=== PATIENT | female | born 1985 | race Caucasian/White ===

== ENCOUNTER 2019-06-17 10:45 | Emergency (ER) | payer BC ==
[2019-06-17 11:39] LABS: ABS Eosinophils 0.1 10^3/ul (0-0.6); ABS Lymphocytes 2.1 10^3/ul (1.0-4.8); ABS Monocytes 0.5 10^3/ul (0-0.8); ABS Neutrophils 3.8 10^3/ul (1.5-7.7); Eosinophil % 1.1 %; Hematocrit 40 % (35-47); Hemoglobin 13.9 g/dL (12.0-16.0); Lymphocyte % 32.6 %; Mean Corpuscular HGB Conc 35 g/dL (31-36); Mean Corpuscular Hemoglobin 30 pg (27-31); Mean Corpuscular Volume 86 fL (80-97); Nucleated Red Blood Cells % 0.2; Platelet Count 256 10^3/uL (150-450); Red Blood Count 4.66 10^6 /uL (3.70-4.87); Red Cell Distribution Width 13 % (10-15); White Blood Count 6.6 10^3/uL (3.5-10.8)
--- NOTE | 2019-06-17 11:39 | ED ---
Abdominal Pain/Female - HPI Summary HPI Summary: Pt is a 34 y/o F presenting to the ED with a chief complaint of abdominal pain initially onset 2 days ago on 06/15/19. It was initially intermittent, lasting anywhere from a couple of seconds to a few hours, and is located in the RLQ, radiating to her R flank and back. She states it has now been constant since 0300 this date. She notes decreased appetite, nausea, vomiting, chills, and an episode of syncope when she experienced pain this morning. She denies fever, diarrhea, constipation, vaginal bleeding, vaginal discharge, dysuria, or hematuria. - History of Current Complaint Chief Complaint: EDAbdPain Stated Complaint: STOMACH PAIN PER PT Time Seen by Provider: 06/17/19 11:31 Hx Obtained From: Patient Onset/Duration: Gradual Onset, Lasting Days, Still Present Timing: Hours Severity Initially: Moderate Severity Currently: Severe Pain Intensity: 10 Pain Scale Used: 0-10 Numeric Location: Discrete At: RLQ Radiates: Yes Radiates to: Back, Flank Aggravating Factor(s): Nothing Alleviating Factor(s): Nothing Associated Signs and Symptoms: Positive: Decreased Appetite, Nausea, Vomiting. Negative: Fever, Constipation, Urinary Symptoms, Vaginal Bleeding, Vaginal Discharge, Diarrhea Allergies/Adverse Reactions: Allergies Allergy/AdvReac Type Severity Reaction Status Date / Time MS Acetaminophen Allergy Unknown Verified 06/17/19 10:51 [From Darvocet-N] Reaction Details MS Amoxicillin [Amoxicillin] Allergy Unknown Verified 06/17/19 10:51 Reaction Details MS Ibuprofen [Ibuprofen] Allergy Edema Verified 06/17/19 10:51 MS Iodinated Diagnostic Allergy Rash Verified 06/17/19 10:51 Agents [Iodinated Diagnostic Agents] MS Ketorolac Tromethamine Allergy Rash Verified 06/17/19 10:51 [From Toradol] MS Latex [Latex] Allergy Rash Verified 06/17/19 10:51 MS Lorazepam [From Ativan] Allergy Unknown Verified 06/17/19 10:51 Reaction Details MS Metoclopramide Allergy Unknown Verified 06/17/19 10:51 [From Reglan] Reaction Details MS Nalbuphine [From Nubain] Allergy Unknown Verified 06/17/19 10:51 Reaction Details MS Propoxyphene Allergy Unknown Verified 06/17/19 10:51 [From Darvocet-N] Reaction Details MS Sulfamethoxazole Allergy GI Upset Verified 06/17/19 10:51 w/Trimethoprim [From Bactrim] MS Tramadol [Tramadol] Allergy Rash Verified 06/17/19 10:51 Home Medications: Home Medications Amitriptyline TAB* [Elavil TAB*] 10 mg PO BEDTIME 06/17/19 [History Confirmed ] Diazepam TAB(*) [Valium TAB(*)] 5 mg PO BEDTIME PRN 06/17/19 [History Confirmed 06/17/19] Diazepam TAB(NF) [Valium TAB(NF)] 2 mg PO BID PRN 06/17/19 [History Confirmed ] Doxepin (NF) [Silenor (NF)] 10 mg PO DAILY 06/17/19 [History Confirmed 06/17/19] Melatonin (NF) 1 tab PO BEDTIME PRN 06/17/19 [History Confirmed 06/17/19] PMH/Surg Hx/FS Hx/Imm Hx Previously Healthy: Yes Cardiovascular History: Denies: Hx Hypertension, Hx Syncope Respiratory History: Reports: Hx Asthma, Hx Seasonal Allergies - pollen GI History: Reports: Hx Gall Bladder Disease - cholecystectomy, Other GI Disorders - fatty liver disease History: Reports: Hx Kidney Stones Denies: Hx Acute Renal Failure, Hx Benign Prostatic Hyperplasia, Hx Chronic Renal Failure, Hx Dialysis, Hx Kidney Infection Musculoskeletal History: Reports: Hx Arthritis - knees bilat, Hx Back Problems - "pinched nerves" per patient Sensory History: Reports: Hx Contacts or Glasses - not with patient at this time Denies: Hx Cataracts Opthamlomology History: Reports: Hx Contacts or Glasses - not with patient at this time Denies: Hx Cataracts Neurological History: Reports: Hx Headaches, Hx Migraine Denies: Hx Dementia, Hx Seizures Psychiatric History: Reports: Hx Anxiety, Hx Depression, Hx Bipolar Disorder, Hx Suicide Attempt - when she was 19 - "not serious" Denies: Hx Attention Deficit Hyperactivity Disorder, Hx Inpatient Treatment, Hx of Violent Episodes Against Others - Surgical History Surgery Procedure, Year, and Place: SETH, BILATERAL KNEES. ATTEMPTED TO STERILIZE BUT FAILED SURGERY ACCORDING TO PT/LOWER ABD SCAR Hx Anesthesia Reactions: No - Immunization History Date of Tetanus Vaccine: PT UNSURE Date of Influenza Vaccine: NONE Infectious Disease History: No Infectious Disease History: Denies: Hx Clostridium Difficile, Hx Hepatitis, Hx Human Immunodeficiency Virus (HIV), Hx of Known/Suspected MRSA, Hx Shingles, Hx Tuberculosis, Hx Known/ Suspected VRE, Hx Known/Suspected VRSA, History Other Infectious Disease, Traveled Outside the [place] in Last 30 Days - Family History Known Family History: Negative: Diabetes - Social History Alcohol Use: None Hx Substance Use: No Substance Use Type: Reports: None Hx Tobacco Use: No Smoking Status (MU): Never Smoked Tobacco Have You Smoked in the Last Year: No Review of Systems Positive: Chills, Other - decreased appetite. Negative: Fever Positive: Abdominal Pain, Vomiting, Nausea. Negative: Diarrhea, Other - constipation Negative: dysuria, discharge, hematuria, other - vaginal bleeding Positive: Syncope All Other Systems Reviewed And Are Negative: Yes Physical Exam - Summary Physical Exam Summary: Constitutional: Well-developed, Well-nourished, Alert. (-) Distressed Skin: Warm, Dry HENT: Normocephalic; Atraumatic Eyes: Conjunctiva normal Neck: Musculoskeletal ROM normal neck. (-) JVD, (-) Stridor, (-) Tracheal deviation Cardio: Rhythm regular, rate normal, Heart sounds normal; Intact distal pulses; Radial pulses are 2+ and symmetric. (-) Murmur Pulmonary/Chest wall: Effort normal. (-) Respiratory distress, (-) Wheezes, (-) Rales Abd: Soft, tenderness at McBurneys point, positive obturator sign, (-) Distension, (-) Guarding, (-) Rebound Musculoskeletal: (-) Edema Lymph: (-) Cervical adenopathy Neuro: Alert, Oriented x3 Psych: Mood and affect Normal Triage Information Reviewed: Yes Vital Signs On Initial Exam: Initial Vitals Temp Pulse Resp BP Pulse Ox 97.8 F 72 20 135/90 99 06/17/19 10:47 06/17/19 10:47 06/17/19 10:47 06/17/19 10:47 06/17/19 10:47 Vital Signs Reviewed: Yes Procedures - Sedation Patient Received Moderate/Deep Sedation with Procedure: No Diagnostics - Vital Signs Vital Signs Temp Pulse Resp BP Pulse Ox 06/17/19 10:47 97.8 F 72 20 135/90 99 - Laboratory Result Diagrams: 06/17/19 11:31 06/17/19 11:31 Lab Statement: Any lab studies that have been ordered have been reviewed, and results considered in the medical decision making process. - CT CT a/p CT Interpretation Completed By: Radiologist Summary of CT Findings: NORMAL APPENDIX. NO ACUTE CT PATHOLOGY OF THE VISUALIZED ABDOMEN OR PELVIS. ED physician has reviewed this report. Re-Evaluation - Re-Evaluation 1st re-eval Re-Evaluation Time: 13:00 Change: Unchanged Comment: Pt stated in imaging that her throat started to feel scratchy. She received 50mg IV Benadryl. There are no signs of airway obstruction. Blood pressure is nml. SaO2 is nml. 2nd re-eval Re-Evaluation Time: 13:39 Change: Improved Comment: Pt is asymptomatic for anaphylaxis. I will monitor the pt until 14:00 and then d/c if still asymptomatic. Abdominal Pain Fem Course/Dx - Course Course Of Treatment: Patient is here with right lower quadrant pain for the past couple of days. Patient had blood work performed which was grossly unremarkable. Patient is not . Patient had a CT scan showed normal appendix and no ovarian cysts. Patient did have a scratchy throat from the CT contrast dye. No evidence of anaphylaxis. Patient was watched with no worsening of her symptoms. - Diagnoses Provider Diagnoses: RLQ abdominal pain, Vomiting Discharge ED - Sign-Out/Discharge Documenting (check all that apply): Patient Departure - Discharge Plan Condition: Stable Disposition: HOME Prescriptions: Acetaminophen with Codeine [Acetaminophen-Cod #3 Tablet] 1 each PO Q8HR PRN #12 tablet MDD 3 tablets PRN Reason: pain severe Patient Education Materials: Acute Abdominal Pain (ED) Referrals: Brooks FERRIS,Jori Campoverde [Primary Care Provider] - Additional Instructions: Take your pain medications as prescribed. Follow up with your primary care provider within the next 1-3 days. - Billing Disposition and Condition Condition: STABLE Disposition: Home - Attestation Statements Document Initiated by Scribe: Yes Documenting Scribe: Merissa Singletary Provider For Whom Remigio is Documenting (Include Credential): Gilberto Howard MD. Scribe Attestation: Merissa Yuan scribed for Gilberto Howard MD. on 06/17/19 at 1910. Scribe Documentation Reviewed: Yes Provider Attestation: The documentation as recorded by the Merissa gastelum accurately reflects the service I personally performed and the decisions made by me, Gilberto Howard MD. Status of Scribe Document: Viewed
[2019-06-17] MEDS ORDERED: Ondansetron INJ* 2 MG/ML VIAL IV ONE (11:40)
[2019-06-17] MEDS ORDERED: Morphine 4 MG/ML VIAL (1 ml) 4 MG/ML VIAL IV ONE ×2 (11:40→12:25)
[2019-06-17] MEDS ORDERED: diPHENhydraMINE IV* 50 MG/ML 1 ml VIAL (BENADRYL) IV ONE (11:47)
[2019-06-17 11:56] LABS: Albumin/Globulin Ratio 1.1 (1-3); BUN/Creatinine Ratio 9.3 (8-20); Calcium 9.6 mg/dL (8.6-10.3); EGFR African American 80.5 (>60); EGFR Non-African American 66.6 (>60); Globulin 3.5 g/dL (2-4); Potassium 3.7 mmol/L (3.5-5.0); Total Bilirubin 0.8 mg/dL (0.2-1.0); Total Protein 7.5 g/dL (6.4-8.9)
[2019-06-17 12:02] LABS: HCG Pregnancy 6.22 mIU/mL
[2019-06-17 12:18] LABS: Urine Appearance Clear; Urine Bacteria Absent (Absent); Urine Bilirubin Negative (Negative); Urine Blood Negative (Negative); Urine Color Yellow; Urine Glucose Negative (Negative); Urine Ketones Negative (Negative); Urine Nitrite Negative (Negative); Urine Protein Negative (Negative); Urine Red Blood Cell 2+(6-10/hpf) (Absent); Urine Specific Gravity 1.017 (1.010-1.030); Urine Squamous Epithelial Cell Present (Absent); Urine Urobilinogen Negative (Negative); Urine White Blood Cell Trace(0-5/hpf) (Absent)
[2019-06-17] MEDS ORDERED: NS 0.9% 1000 ML** 1,000 ML IV ONE (12:25)
[2019-06-17] MEDS ORDERED: diPHENhydraMINE IV* 50 MG/ML 1 ml VIAL (BENADRYL) ONE (13:05)
[2019-06-17] MEDS ORDERED: Iohexol 300* (CONTRAST) 10 ML SDV IV ONE (13:13)
[2019-06-17] MEDS ORDERED: oxyCODONE TAB* 5 MG TAB PO ONE (13:31)
[2019-06-17 14:24] VITALS: BP 125/80
--- NOTE | 2019-06-19 07:08 | ED ---
Imaging and Labs Follow Up Follow Up Type: Labs/Cultures Labs/Culture Result: Urine culture with e coli [id number] moderate colony count squamous cells present Pt not complaining or UA symptoms while in ED aferbile no treatment needed at this time Patient Communication/Plan: no treatment required Provider Diagnoses: RLQ abdominal pain, Vomiting
== END 2019-06-17 14:20 | disposition home or self-care (01) ==
LOC: ED 10:45
DX: R10.31 Right lower quadrant pain (principal); R11.10 Vomiting, unspecified; Z87.442 Personal history of urinary calculi; J45.909 Unspecified asthma, uncomplicated; Z79.899 Other long term (current) drug therapy; R63.0 Anorexia
CPT/HCPCS: 36415; 74177; 80053; 81003; 81015; 83690; 84702; 85025; 87077; 87086; 87186; 99284; A9270-GY; J1200; J2270; J2405; Q9967

== ENCOUNTER 2019-06-26 16:49 | Emergency (ER) | payer BC ==
[2019-06-26] MEDS ORDERED: NS 0.9% 1000 ML** 1,000 ML IV ONE (18:08)
[2019-06-26] MEDS ORDERED: Ondansetron INJ* 2 MG/ML VIAL IV ONE (18:08)
[2019-06-26] MEDS ORDERED: Morphine 4 MG/ML VIAL (1 ml) 4 MG/ML VIAL IV ONE ×2 (18:08→20:33)
[2019-06-26] MEDS ORDERED: diPHENhydraMINE IV* 50 MG/ML 1 ml VIAL (BENADRYL) SLOW PUSH ONE (18:35)
[2019-06-26 18:51] LABS: ABS Lymphocytes 2.8 10^3/ul (1.0-4.8); ABS Monocytes 0.4 10^3/ul (0-0.8); ABS Neutrophils 3.1 10^3/ul (1.5-7.7); Eosinophil % 0.6 %; Hematocrit 41 % (35-47); Hemoglobin 14.2 g/dL (12.0-16.0); Lymphocyte % 44.2 %; Mean Corpuscular HGB Conc 34 g/dL (31-36); Mean Corpuscular Hemoglobin 30 pg (27-31); Mean Corpuscular Volume 87 fL (80-97); Mean Platelet Volume 8.1 fL (7.4-10.4); Nucleated Red Blood Cells % 0.1; Platelet Count 213 10^3/uL (150-450); Red Blood Count 4.72 10^6 /uL (3.70-4.87); Red Cell Distribution Width 13 % (10-15); White Blood Count 6.4 10^3/uL (3.5-10.8)
[2019-06-26] MEDS ORDERED: diPHENhydraMINE IV* 50 MG/ML 1 ml VIAL (BENADRYL) IV ONE (19:44)
[2019-06-26 20:08] LABS: Albumin 3.8 g/dL (3.2-5.2); Anion Gap 10 mmol/L (2-11); CO2 Carbon Dioxide 26 mmol/L (22-32); Calcium 9.3 mg/dL (8.6-10.3); Chloride 103 mmol/L (101-111); Sodium 139 mmol/L (135-145)
[2019-06-26 20:14] LABS: ALT 12 U/L (7-52); AST 14 U/L (13-39); Albumin/Globulin Ratio 1.4 (1-3); Alkaline Phosphatase 83 U/L (34-104); BUN/Creatinine Ratio 14.3 (8-20); Blood Urea Nitrogen 13 mg/dL (6-24); C Reactive Protein < 1.00 mg/L (<8.01); EGFR African American 86.7 (>60); EGFR Non-African American 71.6 (>60); Globulin 2.7 g/dL (2-4); Glucose 85 mg/dL (70-100); Total Protein 6.5 g/dL (6.4-8.9)
--- NOTE | 2019-06-26 20:18 | ED ---
GI/ HPI - HPI Summary HPI Summary: 34-year-old female presents with abdominal pain for the past 2 days. She states pain started periumblicial and moved to to the right lower quadrant. She admits to nausea vomiting. No fevers. No urinary symptoms. No abnormal vaginal discharge. She had this pain a week a ago and nothing was found. She does have a history of gastric sleeve that has had no complications with. Has had previous surgeries for endometriosis including a hysterectomy. States she is an extreme pain. Has not had appetite. Movement makes the pain worse. She denies any chest pain shortness breath. she has a history of asthma. - History of Current Complaint Chief Complaint: EDAbdPain Time Seen by Provider: 06/26/19 18:03 Stated Complaint: ABD PAIN PER PT Pain Intensity: 10 - Allergy/Home Medications Allergies/Adverse Reactions: Allergies Allergy/AdvReac Type Severity Reaction Status Date / Time MS Acetaminophen Allergy Unknown Verified 06/17/19 10:51 [From Darvocet-N] Reaction Details MS Amoxicillin [Amoxicillin] Allergy Unknown Verified 06/17/19 10:51 Reaction Details MS Ibuprofen [Ibuprofen] Allergy Edema Verified 06/17/19 10:51 MS Iodinated Diagnostic Allergy Rash Verified 06/17/19 10:51 Agents [Iodinated Diagnostic Agents] MS Ketorolac Tromethamine Allergy Rash Verified 06/17/19 10:51 [From Toradol] MS Latex [Latex] Allergy Rash Verified 06/17/19 10:51 MS Lorazepam [From Ativan] Allergy Unknown Verified 06/17/19 10:51 Reaction Details MS Metoclopramide Allergy Unknown Verified 06/17/19 10:51 [From Reglan] Reaction Details MS Nalbuphine [From Nubain] Allergy Unknown Verified 06/17/19 10:51 Reaction Details MS Propoxyphene Allergy Unknown Verified 06/17/19 10:51 [From Darvocet-N] Reaction Details MS Sulfamethoxazole Allergy GI Upset Verified 06/17/19 10:51 w/Trimethoprim [From Bactrim] MS Tramadol [Tramadol] Allergy Rash Verified 06/17/19 10:51 Home Medications: Home Medications Baclofen TAB* [Lioresal TAB*] 10 mg PO TID PRN 06/26/19 [History Confirmed 06/26] Doxepin (NF) [Silenor (NF)] 10 - 40 mg PO BEDTIME 06/26/19 [History Confirmed ] Lurasidone(*) [Latuda] 20 mg PO DAILY WITH MEAL 06/26/19 [History Confirmed ] Lurasidone(*) [Latuda] 80 mg PO DAILY WITH MEAL 06/26/19 [History Confirmed ] Pantoprazole TAB * [Protonix TAB*] 40 mg PO DAILY 06/26/19 [History Confirmed ] PMH/Surg Hx/FS Hx/Imm Hx Endocrine/Hematology History: Denies: Hx Anticoagulant Therapy Cardiovascular History: Denies: Hx Hypertension, Hx Syncope Respiratory History: Reports: Hx Asthma, Hx Seasonal Allergies - pollen GI History: Reports: Hx Gall Bladder Disease - cholecystectomy, Other GI Disorders - fatty liver disease History: Reports: Hx Kidney Stones Denies: Hx Acute Renal Failure, Hx Benign Prostatic Hyperplasia, Hx Chronic Renal Failure, Hx Dialysis, Hx Kidney Infection Musculoskeletal History: Reports: Hx Arthritis - knees bilat, Hx Back Problems - "pinched nerves" per patient Sensory History: Reports: Hx Contacts or Glasses - not with patient at this time Denies: Hx Cataracts Opthamlomology History: Reports: Hx Contacts or Glasses - not with patient at this time Denies: Hx Cataracts Neurological History: Reports: Hx Headaches, Hx Migraine Denies: Hx Dementia, Hx Seizures Psychiatric History: Reports: Hx Anxiety, Hx Depression, Hx Bipolar Disorder, Hx Suicide Attempt - when she was 19 - "not serious" Denies: Hx Attention Deficit Hyperactivity Disorder, Hx Inpatient Treatment, Hx of Violent Episodes Against Others - Surgical History Surgery Procedure, Year, and Place: SETH, BILATERAL KNEES. ATTEMPTED TO STERILIZE BUT FAILED SURGERY ACCORDING TO PT/LOWER ABD SCAR Hx Anesthesia Reactions: No - Immunization History Date of Tetanus Vaccine: PT UNSURE Date of Influenza Vaccine: 05/28/2019 Immunizations Up to Date: Yes Infectious Disease History: No Infectious Disease History: Denies: Hx Clostridium Difficile, Hx Hepatitis, Hx Human Immunodeficiency Virus (HIV), Hx of Known/Suspected MRSA, Hx Shingles, Hx Tuberculosis, Hx Known/ Suspected VRE, Hx Known/Suspected VRSA, History Other Infectious Disease, Traveled Outside the [place] in Last 30 Days - Family History Known Family History: Negative: Diabetes - Social History Alcohol Use: None Hx Substance Use: No Substance Use Type: Reports: None Hx Tobacco Use: No Smoking Status (MU): Never Smoked Tobacco Have You Smoked in the Last Year: No Review of Systems Negative: Fever Negative: Chest Pain Negative: Shortness Of Breath Positive: Abdominal Pain, Vomiting, Nausea. Negative: Diarrhea All Other Systems Reviewed And Are Negative: Yes Physical Exam Triage Information Reviewed: Yes Vital Signs On Initial Exam: Initial Vitals Temp Pulse Resp BP Pulse Ox 97.0 F 75 18 130/81 99 06/26/19 16:51 06/26/19 16:51 06/26/19 16:51 06/26/19 16:51 06/26/19 16:51 Vital Signs Reviewed: Yes Appearance: Positive: Well-Appearing Skin: Positive: Warm, Dry Head/Face: Positive: Normal Head/Face Inspection Eyes: Positive: Normal, Conjunctiva Clear ENT: Positive: Pharynx normal Respiratory/Lung Sounds: Positive: Clear to Auscultation, Breath Sounds Present Cardiovascular: Positive: Normal, RRR Abdomen Description: Positive: Soft, Other: - tenderness periumbilical and RLQ Bowel Sounds: Positive: Present Musculoskeletal: Positive: Normal Neurological: Positive: Normal Psychiatric: Positive: Normal Procedures - Sedation Patient Received Moderate/Deep Sedation with Procedure: No Diagnostics - Vital Signs Vital Signs Temp Pulse Resp BP Pulse Ox 06/26/19 19:37 17 06/26/19 19:26 63 110/74 99 06/26/19 19:25 60 98 06/26/19 16:51 97.0 F 75 18 130/81 99 - Laboratory Lab Results: Lab Results 06/26/19 06/26/19 06/26/19 Range/Units 18:45 18:45 18:45 WBC 6.4 (3.5-10.8) 10^3/uL RBC 4.72 (3.70-4.87) 10^6 /uL Hgb 14.2 (12.0-16.0) g/dL Hct 41 (35-47) % MCV 87 (80-97) fL MCH 30 (27-31) pg MCHC 34 (31-36) g/dL RDW 13 (10-15) % Plt Count 213 (150-450) 10^3/uL MPV 8.1 (7.4-10.4) fL Neut % (Auto) 49.3 % Lymph % (Auto) 44.2 % [place] % (Auto) 5.6 % Eos % (Auto) 0.6 % Baso % (Auto) 0.3 % Absolute Neuts (auto) 3.1 (1.5-7.7) 10^3/ul Absolute Lymphs (auto) 2.8 (1.0-4.8) 10^3/ul Absolute Monos (auto) 0.4 (0-0.8) 10^3/ul Absolute Eos (auto) 0.0 (0-0.6) 10^3/ul Absolute Basos (auto) 0.0 (0-0.2) 10^3/ul Absolute Nucleated RBC 0.0 10^3/ul Nucleated RBC % 0.1 Sodium 139 (135-145) mmol/L Potassium 4.0 (3.5-5.0) mmol/L Chloride 103 (101-111) mmol/L Carbon Dioxide 26 (22-32) mmol/L Anion Gap 10 (2-11) mmol/L BUN Pending Creatinine Pending Est GFR ( Amer) Pending Est GFR (Non-Af Amer) Pending BUN/Creatinine Ratio Pending Glucose Pending Lactic Acid 0.8 (0.5-2.0) mmol/L Calcium 9.3 (8.6-10.3) mg/dL Total Bilirubin 0.60 (0.2-1.0) mg/dL AST Pending ALT Pending Alkaline Phosphatase Pending C-Reactive Protein Pending Total Protein Pending Albumin 3.8 (3.2-5.2) g/dL Globulin Pending Albumin/Globulin Ratio Pending Lipase Pending Beta HCG, Quant Pending Result Diagrams: 06/26/19 18:45 06/26/19 18:45 Lab Statement: Any lab studies that have been ordered have been reviewed, and results considered in the medical decision making process. - CT abd CT Interpretation Completed By: Radiologist Summary of CT Findings: IMPRESSION: 1. No CT findings to correlate with patient' s symptomatology. Specifically no appendicitis. 2. Left nephrolithiasis. Re-Evaluation - Re-Evaluation First Eval Change: Improved Comment: still has pain Second Eval Re-Evaluation Time: 20:31 Change: Unchanged Comment: still in pain GIGU Course/Dx - Course Course Of Treatment: 34-year-old female presents with abdominal pain for the past 2 days. She states pain started periumblicial and moved to to the right lower quadrant. She admits to nausea vomiting. No fevers. No urinary symptoms. No abnormal vaginal discharge. She had this pain a week a ago and nothing was found. She does have a history of gastric sleeve that has had no complications with. Has had previous surgeries for endometriosis including a hysterectomy. States she is an extreme pain. Has not had appetite. Movement makes the pain worse. She denies any chest pain shortness breath. she has a history of asthma. On exam diffuse tenderness greatest in the right lower quadrant. wbc normal. CRP normal. CT shows no acute findings. Told to follow up with surgeon and gave referral to GI. Patient understands agrees with plan. - Diagnoses Differential Diagnoses - Female: Appendicitis, Colitis, Gastroenteritis (Viral) Provider Diagnoses: Abdominal pain Discharge ED - Sign-Out/Discharge Documenting (check all that apply): Patient Departure - Discharge Plan Condition: Good Disposition: HOME Patient Education Materials: Abdominal Pain (ED) Referrals: Jose Machado MD [Medical Doctor] - Brooks FERRIS,Jori Campoverde [Primary Care Provider] - Additional Instructions: follow up with surgeon follow up with GI follow up with primary Eat a bland diet Return to ED if develop any new or worsening symptoms - Billing Disposition and Condition Condition: GOOD Disposition: Home - Attestation Statements Provider Attestation: I was available for consult. This patient was seen by the CHERIE. The patient was not presented to, seen by, or examined by me. Gilberto Howard MD
[2019-06-26 20:19] LABS: HCG Pregnancy 4.66 mIU/mL
[2019-06-26] MEDS ORDERED: oxyCODONE TAB* 5 MG TAB PO ONE (20:42)
[2019-06-26 21:18] VITALS: BP 126/73
== END 2019-06-26 20:50 | disposition home or self-care (01) ==
LOC: ED 16:49
DX: R10.9 Unspecified abdominal pain (principal); N20.0 Calculus of kidney; F41.9 Anxiety disorder, unspecified; F31.9 Bipolar disorder, unspecified; Z90.49 Acquired absence of other specified parts of digestive tract; Z79.899 Other long term (current) drug therapy; Z88.5 Allergy status to narcotic agent; Z88.0 Allergy status to penicillin; Z88.2 Allergy status to sulfonamides; Z88.8 Allergy status to other drugs, medicaments and biological substances; Z88.6 Allergy status to analgesic agent; Z91.041 Radiographic dye allergy status; Z91.040 Latex allergy status
CPT/HCPCS: 36415; 74176; 80053; 83605; 83690; 84702; 85025; 86140; 96361; 96374; 96375; 99282; A9270-GY; J1200; J2270; J2405

== ENCOUNTER 2019-07-15 18:19 | Emergency (ER) | payer BC ==
[2019-07-15 18:38] VITALS: BP 117/100
== END 2019-07-15 20:19 | disposition left against medical advice (07) ==
LOC: ED 18:19
DX: Z53.21 Procedure and treatment not carried out due to patient leaving prior to being seen by health care provider (principal); R10.9 Unspecified abdominal pain
CPT/HCPCS: 99282

== ENCOUNTER 2019-07-31 16:54 | Emergency (ER) | payer BC ==
[2019-07-31 18:49] VITALS: BP 138/95
== END 2019-07-31 20:08 | disposition left against medical advice (07) ==
LOC: ED 16:54
DX: Z53.21 Procedure and treatment not carried out due to patient leaving prior to being seen by health care provider (principal); R10.9 Unspecified abdominal pain
CPT/HCPCS: 99281

== ENCOUNTER 2019-08-03 21:08 | Emergency (ER) | payer BC ==
[2019-08-03 21:51] LABS: Urine Appearance Clear; Urine Bilirubin Negative (Negative); Urine Blood Negative (Negative); Urine Color Yellow; Urine Glucose Negative (Negative); Urine Ketones Negative (Negative); Urine Nitrite Negative (Negative); Urine Protein Negative (Negative); Urine Specific Gravity 1.018 (1.010-1.030); Urine Urobilinogen Negative (Negative)
[2019-08-03 21:57] LABS: Urine Bacteria Absent (Absent); Urine Red Blood Cell Trace(0-2/hpf) (Absent); Urine Squamous Epithelial Cell Present (Absent); Urine White Blood Cell Trace(0-5/hpf) (Absent)
[2019-08-03] MEDS ORDERED: Morphine 4 MG/ML VIAL (1 ml) 4 MG/ML VIAL IV ONE (22:34)
[2019-08-03] MEDS ORDERED: Ondansetron INJ* 2 MG/ML VIAL IV ONE (22:34)
[2019-08-03 22:56] LABS: ALT 8 U/L (7-52); AST 14 U/L (13-39); Albumin 4.1 g/dL (3.2-5.2); Albumin/Globulin Ratio 1.2 (1-3); Alkaline Phosphatase 77 U/L (34-104); Anion Gap 8 mmol/L (2-11); BUN/Creatinine Ratio 14.6 (8-20); Blood Urea Nitrogen 13 mg/dL (6-24); C Reactive Protein < 1.00 mg/L (<8.01); CO2 Carbon Dioxide 24 mmol/L (22-32); Calcium 9.7 mg/dL (8.6-10.3); Chloride 106 mmol/L (101-111); EGFR African American 88.9 (>60); EGFR Non-African American 73.5 (>60); Globulin 3.5 g/dL (2-4); Glucose 91 mg/dL (70-100); Potassium 4.3 mmol/L (3.5-5.0); Sodium 138 mmol/L (135-145); Total Protein 7.6 g/dL (6.4-8.9)
[2019-08-03 22:58] LABS: Hematocrit 45 % (35-47); Hemoglobin 15.3 g/dL (12.0-16.0); Mean Corpuscular HGB Conc 35 g/dL (31-36); Mean Corpuscular Hemoglobin 31 pg (27-31); Mean Corpuscular Volume 89 fL (80-97); Red Blood Count 5.02 10^6 /uL (3.70-4.87); Red Cell Distribution Width 13 % (10-15); White Blood Count 6.9 10^3/uL (3.5-10.8)
[2019-08-03 23:02] LABS: HCG Pregnancy 6.49 mIU/mL
[2019-08-03] MEDS ORDERED: diPHENhydraMINE IV* 50 MG/ML 1 ml VIAL (BENADRYL) IV ONE (23:18)
[2019-08-03 23:22] VITALS: BP 122/87
--- NOTE | 2019-08-03 23:31 | ED ---
GI/ HPI - HPI Summary HPI Summary: 34-year-old female presents with abdominal pain today. States she's been having severe pain right lower quadrant. States that pain has been moving to her back. She has had a previous hysterectomy due to endometriosis. She also had a gastric sleeve 2 years ago and gallbladder removed. She followed up with surgery and was told has "a hole" in the area. She also has history of hiatal hernia. She denies any urinary symptoms. She denies any admits to nausea vomiting. No diarrhea or constipation. - History of Current Complaint Chief Complaint: EDAbdPain Time Seen by Provider: 08/03/19 22:19 Stated Complaint: ABD PAIN PER PT Pain Intensity: 10 - Allergy/Home Medications Allergies/Adverse Reactions: Allergies Allergy/AdvReac Type Severity Reaction Status Date / Time acetaminophen Allergy Unknown Verified 08/03/19 22:26 Reaction Details amoxicillin Allergy Rash Verified 08/03/19 22:26 ibuprofen Allergy Edema Verified 08/03/19 22:26 Iodinated Contrast Media Allergy Rash Verified 08/03/19 22:26 Latex, Natural Rubber Allergy Rash Verified 08/03/19 22:26 lorazepam Allergy Unknown Verified 08/03/19 22:26 Reaction Details metoclopramide [From Reglan] Allergy Unknown Verified 08/03/19 22:26 Reaction Details nalbuphine [From Nubain] Allergy Unknown Verified 08/03/19 22:26 Reaction Details propoxyphene Allergy Unknown Verified 08/03/19 22:26 Reaction Details sulfamethoxazole Allergy Unknown Verified 08/03/19 22:26 [From Bactrim] Reaction Details tramadol Allergy Rash Verified 08/03/19 22:26 trimethoprim [From Bactrim] Allergy Unknown Verified 08/03/19 22:26 Reaction Details PMH/Surg Hx/FS Hx/Imm Hx Endocrine/Hematology History: Denies: Hx Anticoagulant Therapy Cardiovascular History: Denies: Hx Hypertension, Hx Syncope Respiratory History: Reports: Hx Asthma, Hx Seasonal Allergies - pollen GI History: Reports: Hx Gall Bladder Disease - cholecystectomy, Other GI Disorders - fatty liver disease History: Reports: Hx Kidney Stones Denies: Hx Acute Renal Failure, Hx Benign Prostatic Hyperplasia, Hx Chronic Renal Failure, Hx Dialysis, Hx Kidney Infection Musculoskeletal History: Reports: Hx Arthritis - knees bilat, Hx Back Problems - "pinched nerves" per patient Sensory History: Reports: Hx Contacts or Glasses - not with patient at this time Denies: Hx Cataracts Opthamlomology History: Reports: Hx Contacts or Glasses - not with patient at this time Denies: Hx Cataracts Neurological History: Reports: Hx Headaches, Hx Migraine Denies: Hx Dementia, Hx Seizures Psychiatric History: Reports: Hx Anxiety, Hx Depression, Hx Bipolar Disorder, Hx Suicide Attempt - when she was 19 - "not serious" Denies: Hx Attention Deficit Hyperactivity Disorder, Hx Inpatient Treatment, Hx of Violent Episodes Against Others - Surgical History Surgery Procedure, Year, and Place: SETH, BILATERAL KNEES. ATTEMPTED TO STERILIZE BUT FAILED SURGERY ACCORDING TO PT/LOWER ABD SCAR Hx Anesthesia Reactions: No - Immunization History Date of Tetanus Vaccine: PT UNSURE Date of Influenza Vaccine: 05/28/2019 Infectious Disease History: No Infectious Disease History: Denies: Hx Clostridium Difficile, Hx Hepatitis, Hx Human Immunodeficiency Virus (HIV), Hx of Known/Suspected MRSA, Hx Shingles, Hx Tuberculosis, Hx Known/ Suspected VRE, Hx Known/Suspected VRSA, History Other Infectious Disease, Traveled Outside the [place] in Last 30 Days - Family History Known Family History: Negative: Diabetes - Social History Alcohol Use: None Hx Substance Use: No Substance Use Type: Reports: None Hx Tobacco Use: No Smoking Status (MU): Never Smoked Tobacco Have You Smoked in the Last Year: No Review of Systems Negative: Fever Negative: Chest Pain Negative: Shortness Of Breath Positive: Abdominal Pain, Vomiting, Nausea. Negative: Diarrhea Negative: dysuria All Other Systems Reviewed And Are Negative: Yes Physical Exam Triage Information Reviewed: Yes Vital Signs On Initial Exam: Initial Vitals Temp Pulse Resp BP Pulse Ox 97.7 F 80 15 146/94 100 08/03/19 21:09 08/03/19 21:09 08/03/19 21:09 08/03/19 21:09 08/03/19 21:09 Vital Signs Reviewed: Yes Appearance: Positive: Well-Appearing Skin: Positive: Warm, Dry Head/Face: Positive: Normal Head/Face Inspection Eyes: Positive: Normal, Conjunctiva Clear ENT: Positive: Pharynx normal Respiratory/Lung Sounds: Positive: Clear to Auscultation, Breath Sounds Present Cardiovascular: Positive: Normal, RRR Abdomen Description: Positive: Soft, CVA Tenderness (R), Other: - tenderness RLQ Bowel Sounds: Positive: Present Musculoskeletal: Positive: Normal Neurological: Positive: Normal Psychiatric: Positive: Normal Procedures - Sedation Patient Received Moderate/Deep Sedation with Procedure: No Diagnostics - Vital Signs Vital Signs Temp Pulse Resp BP Pulse Ox 08/03/19 23:15 84 99 08/03/19 23:02 18 08/03/19 22:37 74 122/87 100 08/03/19 22:31 84 99 08/03/19 21:09 97.7 F 80 15 146/94 100 - Laboratory Lab Results: Lab Results 08/03/19 08/03/19 08/03/19 Range/Units 21:35 22:29 22:29 WBC 6.9 (3.5-10.8) 10^3/uL RBC 5.02 H (3.70-4.87) 10^6 /uL Hgb 15.3 (12.0-16.0) g/dL Hct 45 (35-47) % MCV 89 (80-97) fL MCH 31 (27-31) pg MCHC 35 (31-36) g/dL RDW 13 (10-15) % Plt Count Pending MPV Pending Neut % (Auto) Pending Lymph % (Auto) Pending [place] % (Auto) Pending Eos % (Auto) Pending Baso % (Auto) Pending Absolute Neuts (auto) Pending Absolute Lymphs (auto) Pending Absolute Monos (auto) Pending Absolute Eos (auto) Pending Absolute Basos (auto) Pending Absolute Nucleated RBC Pending Nucleated RBC % Pending Sodium 138 (135-145) mmol/L Potassium 4.3 (3.5-5.0) mmol/L Chloride 106 (101-111) mmol/L Carbon Dioxide 24 (22-32) mmol/L Anion Gap 8 (2-11) mmol/L BUN 13 (6-24) mg/dL Creatinine 0.89 (0.51-0.95) mg/dL Est GFR ( Amer) 88.9 (>60) Est GFR (Non-Af Amer) 73.5 (>60) BUN/Creatinine Ratio 14.6 (8-20) Glucose 91 (70-100) mg/dL Calcium 9.7 (8.6-10.3) mg/dL Total Bilirubin 0.40 (0.2-1.0) mg/dL AST 14 (13-39) U/L ALT 8 (7-52) U/L Alkaline Phosphatase 77 (34-104) U/L C-Reactive Protein < 1.00 (<8.01) mg/L Total Protein 7.6 (6.4-8.9) g/dL Albumin 4.1 (3.2-5.2) g/dL Globulin 3.5 (2-4) g/dL Albumin/Globulin Ratio 1.2 (1-3) Lipase 23 (11.0-82.0) U/L Beta HCG, Quant 6.49 mIU/mL Urine Color Yellow Urine Appearance Clear Urine pH 5.0 (5-9) Ur Specific [place] 1.018 (1.010-1.030) Urine Protein Negative (Negative) Urine Ketones Negative (Negative) Urine Blood Negative (Negative) Urine Nitrate Negative (Negative) Urine Bilirubin Negative (Negative) Urine Urobilinogen Negative (Negative) Ur Leukocyte Esterase Trace A (Negative) Urine WBC (Auto) Trace(0-5/hpf) (Absent) Urine RBC (Auto) Trace(0-2/hpf) (Absent) Ur Squamous Epith Cells Present A (Absent) Urine Bacteria Absent (Absent) Urine Glucose Negative (Negative) Result Diagrams: 08/03/19 22:29 08/03/19 22:29 Lab Statement: Any lab studies that have been ordered have been reviewed, and results considered in the medical decision making process. - CT abd CT Interpretation Completed By: Radiologist Summary of CT Findings: IMPRESSION: 1. There is a stable small hiatal hernia. 2. The appendix is unremarkable. 3. Stable nonobstructive left nephrolithiasis. Re-Evaluation - Re-Evaluation First Eval Re-Evaluation Time: 00:21 Change: Improved Comment: wants to go home GIGU Course/Dx - Course Course Of Treatment: 34-year-old female presents with abdominal pain today. States she's been having severe pain right lower quadrant. States that pain has been moving to her back. She has had a previous hysterectomy due to endometriosis. She also had a gastric sleeve 2 years ago and gallbladder removed. She followed up with surgery and was told has "a hole" in the area. She also has history of hiatal hernia. She denies any urinary symptoms. She denies any admits to nausea vomiting. No diarrhea or constipation. On exam tenderness right lower quadrant and right flank and right lower back. wbc normal. CRP normal. Urine likely contaminant. CT shows no acute findings. Patient here states that she has had allergic reactions to hand superintendent terminal and is requesting Benadryl. Patient feeling better and benadryl and morphine states that she is pain free and would like home. told that needs to stay for CT results. Explained the results to patient. Told to follow up with surgeon as patient has scheduled. Patient understands and agrees plan. - Diagnoses Differential Diagnoses - Female: Appendicitis, Diverticulitis, Gastroenteritis ( Viral) Provider Diagnoses: Abdominal pain Discharge ED - Sign-Out/Discharge Documenting (check all that apply): Patient Departure - Discharge Plan Condition: Good Disposition: HOME Patient Education Materials: Acute Abdominal Pain (ED) Referrals: Brooks FERRIS,Jori Campoverde [Primary Care Provider] - Additional Instructions: follow up with surgeon follow up with primary Return to ED if develop any new or worsening symptoms - Billing Disposition and Condition Condition: GOOD Disposition: Home
[2019-08-03 23:39] LABS: ABS Eosinophils 0.1 10^3/ul (0-0.6); ABS Lymphocytes 2.4 10^3/ul (1.0-4.8); ABS Monocytes 0.4 10^3/ul (0-0.8); Eosinophil % 0.9 %; Lymphocyte % 35.3 %; Mean Platelet Volume 9.1 fL (7.4-10.4); Nucleated Red Blood Cells % 0.1
== END 2019-08-04 00:34 | disposition home or self-care (01) ==
LOC: ED 21:08
DX: R10.9 Unspecified abdominal pain (principal); J45.909 Unspecified asthma, uncomplicated; Z87.442 Personal history of urinary calculi; F32.9 Major depressive disorder, single episode, unspecified; F41.9 Anxiety disorder, unspecified
CPT/HCPCS: 36415; 74176; 80053; 81003; 81015; 83690; 84702; 85025; 86140; 87086; 96374; 96375; 99283; J1200; J2270; J2405

== ENCOUNTER 2019-08-07 15:20 | Emergency (ER) | payer BC ==
--- NOTE | 2019-08-07 15:46 | ED ---
Psychiatric Complaint - HPI Summary HPI Summary: This pt is a 34 y/o female presenting to [facility] c/o "wanting to " secondary to abd pain. Pt reports she was in the ED 4 days ago and was diagnosed with a kidney stone. She notes she wasn't given any pain medications and was discharged home. Pt presents today with abdominal pain that "is so bad she wants to ." However she denies any SI thoughts/plan or HI thoughts/plan. Pt called her psychiatrist explaining the situation and was worried because she has hx of prior suicide attempt (swallowed button batteries). Her psychiatrist advised her to come to the ED and get her pain under control. - History Of Current Complaint Chief Complaint: EDMentalHealth Time Seen by Provider: 08/07/19 15:29 Hx Obtained From: Patient Onset/Duration: Lasting Days, Still Present Timing: Days Severity Currently: Moderate Aggravating Factor(s): Other - abdominal pain Alleviating Factor(s): Nothing Associated Signs And Symptoms: Positive: Negative Has Suicidal: Reports: Has Prior Attempt(s). Denies: Thoughts, With A Plan Has Homicidal: Denies: Thoughts, With A Plan Recent Stressor(s): abdominal pain - Allergies/Home Medications Allergies/Adverse Reactions: Allergies Allergy/AdvReac Type Severity Reaction Status Date / Time acetaminophen Allergy Unknown Verified 08/07/19 15:25 Reaction Details amoxicillin Allergy Rash Verified 08/07/19 15:25 ibuprofen Allergy Edema Verified 08/07/19 15:25 Iodinated Contrast Media Allergy Rash Verified 08/07/19 15:25 Latex, Natural Rubber Allergy Rash Verified 08/07/19 15:25 lorazepam Allergy Unknown Verified 08/07/19 15:25 Reaction Details metoclopramide [From Reglan] Allergy Unknown Verified 08/07/19 15:25 Reaction Details nalbuphine [From Nubain] Allergy Unknown Verified 08/07/19 15:25 Reaction Details propoxyphene Allergy Unknown Verified 08/07/19 15:25 Reaction Details sulfamethoxazole Allergy Unknown Verified 08/07/19 15:25 [From Bactrim] Reaction Details tramadol Allergy Rash Verified 08/07/19 15:25 trimethoprim [From Bactrim] Allergy Unknown Verified 08/07/19 15:25 Reaction Details Home Medications: Home Medications Diazepam TAB(NF) [Valium TAB(NF)] 2 mg PO Q8HR PRN MDD 6 mg 08/07/19 [History Confirmed 08/07/19] QUEtiapine TAB* [Seroquel 100 MG *] 100 mg PO BEDTIME 08/07/19 [History Confirmed 08/07/19] PMH/Surg Hx/FS Hx/Imm Hx Endocrine/Hematology History: Denies: Hx Anticoagulant Therapy Cardiovascular History: Denies: Hx Hypertension, Hx Syncope Respiratory History: Reports: Hx Asthma, Hx Seasonal Allergies - pollen GI History: Reports: Hx Gall Bladder Disease - cholecystectomy, Other GI Disorders - fatty liver disease History: Reports: Hx Kidney Stones Denies: Hx Acute Renal Failure, Hx Benign Prostatic Hyperplasia, Hx Chronic Renal Failure, Hx Dialysis, Hx Kidney Infection Musculoskeletal History: Reports: Hx Arthritis - knees bilat, Hx Back Problems - "pinched nerves" per patient Sensory History: Reports: Hx Contacts or Glasses - not with patient at this time Denies: Hx Cataracts Opthamlomology History: Reports: Hx Contacts or Glasses - not with patient at this time Denies: Hx Cataracts Neurological History: Reports: Hx Headaches, Hx Migraine Denies: Hx Dementia, Hx Seizures Psychiatric History: Reports: Hx Anxiety, Hx Depression, Hx Bipolar Disorder, Hx Suicide Attempt - when she was 19 - "not serious" Denies: Hx Attention Deficit Hyperactivity Disorder, Hx Inpatient Treatment, Hx of Violent Episodes Against Others - Surgical History Surgery Procedure, Year, and Place: SETH, BILATERAL KNEES. ATTEMPTED TO STERILIZE BUT FAILED SURGERY ACCORDING TO PT/LOWER ABD SCAR Hx Anesthesia Reactions: No - Immunization History Date of Tetanus Vaccine: PT UNSURE Date of Influenza Vaccine: 05/28/2019 Immunizations Up to Date: Yes Infectious Disease History: No Infectious Disease History: Denies: Hx Clostridium Difficile, Hx Hepatitis, Hx Human Immunodeficiency Virus (HIV), Hx of Known/Suspected MRSA, Hx Shingles, Hx Tuberculosis, Hx Known/ Suspected VRE, Hx Known/Suspected VRSA, History Other Infectious Disease, Traveled Outside the [place] in Last 30 Days - Family History Known Family History: Negative: Diabetes - Social History Alcohol Use: None Hx Substance Use: No Substance Use Type: Reports: None Hx Tobacco Use: No Smoking Status (MU): Never Smoked Tobacco Have You Smoked in the Last Year: No Review of Systems Negative: Fever Positive: Abdominal Pain Negative: Other - NEGATIVE: SI or HI All Other Systems Reviewed And Are Negative: Yes Physical Exam - Summary Physical Exam Summary: VITAL SIGNS: Reviewed. GENERAL: Patient is an obese female who is sitting comfortable texting on the iPhone and laughing to whoever she is texting. However, when I interview her she states her pain is 10/10. Patient is not in any acute respiratory distress. Patient is malodorous. HEAD AND FACE: No signs of trauma. No ecchymosis, hematomas or skull depressions. No sinus tenderness. EYES: PERRLA, EOMI x 2, No injected conjunctiva, no nystagmus. EARS: Hearing grossly intact. Ear canals and tympanic membranes are within normal limits. MOUTH: Oropharynx within normal limits. NECK: Supple, trachea is midline, no adenopathy, no JVD, no carotid bruit, no c- spine tenderness, neck with full ROM. CHEST: Symmetric, no tenderness at palpation. LUNGS: Clear to auscultation bilaterally. No wheezing or crackles. CVS: Regular rate and rhythm, S1 and S2 present, no murmurs or gallops appreciated. ABDOMEN: Soft, non-tender. No signs of distention. No rebound, no guarding, and no masses palpated. Bowel sounds are normal. EXTREMITIES: FROM in all major joints, no edema, no cyanosis or clubbing. NEURO: Alert and oriented x 3. No acute neurological deficits. Speech is normal and follows commands. SKIN: Dry and warm. Triage Information Reviewed: Yes Vital Signs On Initial Exam: Initial Vitals Temp Pulse Resp BP Pulse Ox 98.3 F 74 18 123/87 100 08/07/19 15:21 08/07/19 15:21 08/07/19 15:21 08/07/19 15:21 08/07/19 15:21 Vital Signs Reviewed: Yes Procedures - Sedation Patient Received Moderate/Deep Sedation with Procedure: No Diagnostics - Vital Signs Vital Signs Temp Pulse Resp BP Pulse Ox 08/07/19 15:21 98.3 F 74 18 123/87 100 - Laboratory Result Diagrams: 08/07/19 16:41 08/07/19 16:41 Lab Statement: Any lab studies that have been ordered have been reviewed, and results considered in the medical decision making process. Course/Dx - Course Assessment/Plan: This pt is a 34 y/o female presenting to [facility] c/o "wanting to " secondary to abd pain. Pt reports she was in the ED 4 days ago and was diagnosed with a kidney stone. She notes she wasn't given any pain medications and was discharged home. Pt presents today with abdominal pain that "is so bad she wants to ." However she denies any SI thoughts/plan or HI thoughts/plan. Pt called her psychiatrist explaining the situation and was worried because she has hx of prior suicide attempt (swallowed button batteries). Her psychiatrist advised her to come to the ED and get her pain under control. Blood work w/o a significant abnormality. She is medically cleared. Patient is waiting a MHE. Patient is hemodynamically stable and A+O x 3. Pt had a mental health evaluation and her case was discussed with Dr. Gtz, psychiatrist. Dr. Gtz cleared the pt for discharge. - Differential Dx/Clinical Impression Differential Diagnosis/HQI/PQRI: Positive: Anxiety, Depression, Suicidal Ideation Provider Diagnosis: Depression Discharge ED - Sign-Out/Discharge Documenting (check all that apply): Patient Departure - Discharge home - Discharge Plan Condition: Stable Disposition: HOME Patient Education Materials: Bipolar Disorder (ED) Referrals: Brooks FERRIS,Jori Campoverde [Primary Care Provider] - - Billing Disposition and Condition Condition: STABLE Disposition: Home - Attestation Statements Document Initiated by Remigio: Yes Documenting Scribe: Piedad Macias Provider For Whom Remigio is Documenting (Include Credential): Oniel Alan MD Scribe Attestation: Piedad Yuan scribed for Oniel Alan MD on 08/07/19 at 2128. Scribe Documentation Reviewed: Yes Provider Attestation: The documentation as recorded by the Piedad gastelum accurately reflects the service I personally performed and the decisions made by me, Oniel Alan MD Status of Scribe Document: Viewed
[2019-08-07 16:10] LABS: Urine Appearance Clear; Urine Bilirubin Negative (Negative); Urine Blood Negative (Negative); Urine Color Yellow; Urine Glucose Negative (Negative); Urine Ketones Negative (Negative); Urine Nitrite Negative (Negative); Urine Protein Negative (Negative); Urine Specific Gravity 1.008 (1.010-1.030); Urine Urobilinogen Negative (Negative)
[2019-08-07 16:19] LABS: Urine Benzodiazepine Screen Presumptive Positive (None Detect); Urine Opiates Screen None Detected (None Detect)
[2019-08-07 16:47] LABS: ABS Eosinophils 0.1 10^3/ul (0-0.6); ABS Lymphocytes 1.6 10^3/ul (1.0-4.8); ABS Monocytes 0.4 10^3/ul (0-0.8); ABS Neutrophils 2.9 10^3/ul (1.5-7.7); Eosinophil % 1.2 %; Hematocrit 38 % (35-47); Hemoglobin 13.5 g/dL (12.0-16.0); Lymphocyte % 32.4 %; Mean Corpuscular HGB Conc 35 g/dL (31-36); Mean Corpuscular Hemoglobin 31 pg (27-31); Mean Corpuscular Volume 87 fL (80-97); Mean Platelet Volume 8.3 fL (7.4-10.4); Nucleated Red Blood Cells % 0.1; Platelet Count 209 10^3/uL (150-450); Red Cell Distribution Width 13 % (10-15)
[2019-08-07 17:04] LABS: ALT 7 U/L (7-52); AST 13 U/L (13-39); Albumin 3.7 g/dL (3.2-5.2); Albumin/Globulin Ratio 1.1 (1-3); Alkaline Phosphatase 72 U/L (34-104); Anion Gap 7 mmol/L (2-11); BUN/Creatinine Ratio 8.3 (8-20); Blood Urea Nitrogen 7 mg/dL (6-24); CO2 Carbon Dioxide 28 mmol/L (22-32); Calcium 9.2 mg/dL (8.6-10.3); Chloride 105 mmol/L (101-111); EGFR African American 95.1 (>60); EGFR Non-African American 78.6 (>60); Globulin 3.3 g/dL (2-4); Glucose 81 mg/dL (70-100); Potassium 3.9 mmol/L (3.5-5.0); Sodium 140 mmol/L (135-145)
[2019-08-07 18:01] LABS: Acetaminophen < 15 mcg/mL; Alcohol < 10 mg/dL (<10); Salicylate < 2.50 mg/dL (<30)
[2019-08-07 18:15] LABS: TSH (Thyroid Stimulating Horm) 0.64 mcIU/mL (0.34-5.60)
[2019-08-07 21:04] VITALS: BP 0/0
== END 2019-08-07 19:00 | disposition home or self-care (01) ==
LOC: ED 15:20
DX: F32.9 Major depressive disorder, single episode, unspecified (principal); J45.909 Unspecified asthma, uncomplicated; F41.9 Anxiety disorder, unspecified; Z90.49 Acquired absence of other specified parts of digestive tract; Z79.899 Other long term (current) drug therapy; Z88.5 Allergy status to narcotic agent; Z88.0 Allergy status to penicillin; Z88.2 Allergy status to sulfonamides; Z88.8 Allergy status to other drugs, medicaments and biological substances; Z88.6 Allergy status to analgesic agent; Z88.1 Allergy status to other antibiotic agents; Z91.041 Radiographic dye allergy status; Z91.040 Latex allergy status
CPT/HCPCS: 36415; 80053; 80307; 80320; 80329; 81003; 84443; 84702; 85025; 99283; G0480

== ENCOUNTER 2019-08-23 16:39 | Emergency (ER) | payer BC ==
--- NOTE | 2019-08-23 17:02 | ED ---
Abdominal Pain/Female - HPI Summary HPI Summary: Patient is a 34 y/o F presenting to the ED for a chief complaint of left flank pain. Patient states that she felt a "popping" sensation on 08/22/19 and again on 08/23/19. On triage, patient rates her flank pain as 9/10 in severity. She also notes having microscopic hematuria found during a previous visit, but she did not notice any gross hematuria. Patient denies fever, dysuria, or any recent infections. Patient had a CT on 08/03/19 that showed a non-obstructed kidney stone. A CT in May 2019 was unremarkable. Patient took 3 Extra Strength Tylenol on 08/23/19 without relief. She denies any aggravating or alleviating factors. PMHx is significant for bipolar disorder. PSHx is significant for a gastric bypass surgery 2 years ago. She has an appointment on 09/08/18 with a urologist. Recently went to OSH for similar. - History of Current Complaint Chief Complaint: EDFlankPain Stated Complaint: ABD PAIN PER PT Time Seen by Provider: 08/23/19 16:57 Hx Obtained From: Patient Onset/Duration: Sudden Onset Timing: Constant Severity Initially: Severe Severity Currently: Severe Pain Intensity: 9 Pain Scale Used: 0-10 Numeric Location: Flank - Left Radiates: No Character: Other: - "Popping" Aggravating Factor(s): Nothing Alleviating Factor(s): Nothing Associated Signs and Symptoms: Positive: Urinary Symptoms - Hematuria. Negative : Fever Allergies/Adverse Reactions: Allergies Allergy/AdvReac Type Severity Reaction Status Date / Time acetaminophen Allergy Unknown Verified 08/23/19 16:44 Reaction Details amoxicillin Allergy Rash Verified 08/23/19 16:44 ibuprofen Allergy Edema Verified 08/23/19 16:44 Iodinated Contrast Media Allergy Rash Verified 08/23/19 16:44 Latex, Natural Rubber Allergy Rash Verified 08/23/19 16:44 lorazepam Allergy Unknown Verified 08/23/19 16:44 Reaction Details metoclopramide [From Reglan] Allergy Unknown Verified 08/23/19 16:44 Reaction Details nalbuphine [From Nubain] Allergy Unknown Verified 08/23/19 16:44 Reaction Details propoxyphene Allergy Unknown Verified 08/23/19 16:44 Reaction Details sulfamethoxazole Allergy Unknown Verified 08/23/19 16:44 [From Bactrim] Reaction Details tramadol Allergy Rash Verified 08/23/19 16:44 trimethoprim [From Bactrim] Allergy Unknown Verified 08/23/19 16:44 Reaction Details PMH/Surg Hx/FS Hx/Imm Hx Previously Healthy: Yes Endocrine/Hematology History: Denies: Hx Anticoagulant Therapy Cardiovascular History: Denies: Hx Hypertension, Hx Syncope Respiratory History: Reports: Hx Asthma, Hx Seasonal Allergies - pollen GI History: Reports: Hx Gall Bladder Disease - cholecystectomy, Other GI Disorders - fatty liver disease History: Reports: Hx Kidney Stones Denies: Hx Acute Renal Failure, Hx Benign Prostatic Hyperplasia, Hx Chronic Renal Failure, Hx Dialysis, Hx Kidney Infection Musculoskeletal History: Reports: Hx Arthritis - knees bilat, Hx Back Problems - "pinched nerves" per patient Sensory History: Reports: Hx Contacts or Glasses - not with patient at this time Denies: Hx Cataracts, Hx Legally Blind, Hx Deafness Opthamlomology History: Reports: Hx Contacts or Glasses - not with patient at this time Denies: Hx Cataracts, Hx Legally Blind EENT History: Denies: Hx Deafness Neurological History: Reports: Hx Headaches, Hx Migraine Denies: Hx Dementia, Hx Seizures Psychiatric History: Reports: Hx Anxiety, Hx Eating Disorder, Hx Depression, Hx Post Traumatic Stress Disorder, Hx Bipolar Disorder, Hx Suicide Attempt - when she was 19 - "not serious" Denies: Hx Attention Deficit Hyperactivity Disorder, Hx Inpatient Treatment, Hx Schizophrenia, Hx of Violent Episodes Against Others - Surgical History Surgical History: Yes Surgery Procedure, Year, and Place: SETH, BILATERAL KNEES. ATTEMPTED TO STERILIZE BUT FAILED SURGERY ACCORDING TO PT/LOWER ABD SCAR Hx Anesthesia Reactions: No - Immunization History Date of Tetanus Vaccine: PT UNSURE Date of Influenza Vaccine: 05/28/2019 Infectious Disease History: No Infectious Disease History: Denies: Hx Clostridium Difficile, Hx Hepatitis, Hx Human Immunodeficiency Virus (HIV), Hx of Known/Suspected MRSA, Hx Shingles, Hx Tuberculosis, Hx Known/ Suspected VRE, Hx Known/Suspected VRSA, History Other Infectious Disease, Traveled Outside the [place] in Last 30 Days - Family History Known Family History: Negative: Diabetes - Social History Lives: With Family Alcohol Use: None Hx Substance Use: No Substance Use Type: Reports: None Hx Tobacco Use: No Smoking Status (MU): Never Smoked Tobacco Have You Smoked in the Last Year: No Review of Systems Negative: Fever Positive: Abdominal Pain - Left flank Positive: flank pain - Left, hematuria. Negative: dysuria All Other Systems Reviewed And Are Negative: Yes Physical Exam - Summary Physical Exam Summary: Constitutional: Well-developed, Morbidly obese, Alert. (-) Distressed Skin: Warm, Dry HENT: Normocephalic; Atraumatic Eyes: Conjunctiva normal Neck: Musculoskeletal ROM normal neck. (-) JVD, (-) Stridor, (-) Nuchal rigidity Cardio: Rhythm regular, rate normal, Heart sounds normal; Intact distal pulses; Radial pulses are 2+ and symmetric. (-) Murmur Pulmonary/Chest wall: Effort normal. (-) Respiratory distress, (-) Wheezes, (-) Rales Abd: Soft, (-) Distension, (-) Guarding, (-) Rebound. Left flank tenderness. Musculoskeletal: (-) Edema Neuro: Alert, Oriented x3 Psych: Mood and affect Normal Triage Information Reviewed: Yes Vital Signs On Initial Exam: Initial Vitals Temp Pulse Resp BP Pulse Ox 98.1 F 84 16 140/96 99 08/23/19 16:41 08/23/19 16:41 08/23/19 16:41 08/23/19 16:41 08/23/19 16:41 Vital Signs Reviewed: Yes Procedures - Procedure Summary Procedure Summary: US IV Ultrasound Guided Peripheral IV Procedure Note Indication: Unable to obtain adequate IV access Skin Prep:Chlorhexidine Sterile Prep (allowed to dry for thirty seconds) Sterility: Gloves Insertion: Appropriate time out was taken. Ultrasound guidance was utilized for vein selection, to document selected vessel patency and real time ultrasound visualization of vascular needle entry into venous lumen. Insertion Site: R AC, using 20 g needle obtained lab work. After labwork, IV blew. - Sedation Patient Received Moderate/Deep Sedation with Procedure: No Diagnostics - Vital Signs Vital Signs Temp Pulse Resp BP Pulse Ox 08/23/19 16:41 98.1 F 84 16 140/96 99 - Laboratory Result Diagrams: 08/23/19 18:21 Lab Statement: Any lab studies that have been ordered have been reviewed, and results considered in the medical decision making process. - Ultrasound Renal US Ultrasound Interpretation Completed By: Radiologist Summary of Ultrasound Findings: Renal US IMPRESSION: 1. NO EVIDENCE FOR HYDRONEPHROSIS. 2. LEFT RENAL CALCULUS. Reviewed by Dr. Nicole. Abdominal Pain Fem Course/Dx - Course Course Of Treatment: 34 y/o w hx of L kidney stone p/w L flank pain. - PE w tenderness L flank. US w/o obstructing stone or hydronephrosis. - UA w trace LE. Will treat as UTI given stone, however low suspicion for infected stone given lack of infectious symptoms. - patient got one dose of hydrocodone here, will not send home w hydrocodone as patient does not have obstructing stone. She also takes valium TID at home. Explained she could take tylenol at home. Reports motrin allergy so cannot give tylenol. - has been seen in multiple hospitals for similar, has recent CT imaging in July. has urology next month. - Cr baseline. CBC clotted, patient very difficult stick. No infectious symptoms therefore deferred redraw as patient just had labwork at OSH. - HCG negative - Diagnoses Provider Diagnoses: Left flank pain, Renal calculi Discharge ED - Sign-Out/Discharge Documenting (check all that apply): Patient Departure - Discharge Plan Condition: Stable Disposition: HOME Prescriptions: Cephalexin CAP* [Keflex CAP*] 500 mg PO BID 5 Days #10 cap Ondansetron ODT TAB* [Zofran 4 MG Odt TAB*] 4 mg PO Q8H PRN 4 Days #12 tab.odt PRN Reason: Nausea/Vomiting Patient Education Materials: Flank Pain (ED) Referrals: Brooks FERRSI,Jori Campoverde [Primary Care Provider] - Additional Instructions: You were seen in the emergency department for flank pain. Your ultrasound did not show any hydronephrosis or obstruction. Take keflex twice a day. Follow up with urology Please follow up with your primary care doctor in next 2-3 days and return to emergency department for worsening or concerning symptoms. It was a pleasure taking care of you today. - Billing Disposition and Condition Condition: STABLE Disposition: Home - Attestation Statements Document Initiated by Scribe: Yes Documenting Scribe: Savannah Patterson Provider For Whom Scribe is Documenting (Include Credential): Sana Nicole MD Scribe Attestation: Savannah Yuan, scribed for Sana Nicole MD on 08/24/19 at 0709. Scribe Documentation Reviewed: Yes Provider Attestation: The documentation as recorded by the scribe, Savannah Patterson accurately reflects the service I personally performed and the decisions made by me, Sana Nicole MD Status of Scribe Document: Viewed
[2019-08-23] MEDS ORDERED: Ondansetron ODT TAB* 4 MG PO ONE (17:16)
[2019-08-23] MEDS ORDERED: oxyCODONE/Acetamin 5/325 MG* TAB PO ONE (17:17)
[2019-08-23 17:22] LABS: Urine Appearance Cloudy; Urine Bilirubin Negative (Negative); Urine Blood Negative (Negative); Urine Color Yellow; Urine Glucose Negative (Negative); Urine Ketones Negative (Negative); Urine Nitrite Negative (Negative); Urine Protein Negative (Negative); Urine Specific Gravity 1.012 (1.010-1.030); Urine Urobilinogen Negative (Negative)
[2019-08-23 17:27] LABS: Urine Bacteria Absent (Absent); Urine Red Blood Cell Trace(0-2/hpf) (Absent); Urine Squamous Epithelial Cell Present (Absent); Urine White Blood Cell Absent (Absent)
[2019-08-23] MEDS ORDERED: Cephalexin CAP* 500 MG PO ONE (18:05)
[2019-08-23 18:48] LABS: ALT 21 U/L (7-52); Albumin 3.9 g/dL (3.2-5.2); Albumin/Globulin Ratio 1.1 (1-3); Alkaline Phosphatase 96 U/L (34-104); BUN/Creatinine Ratio 10.1 (8-20); Blood Urea Nitrogen 10 mg/dL (6-24); CO2 Carbon Dioxide 26 mmol/L (22-32); Calcium 9.5 mg/dL (8.6-10.3); Chloride 103 mmol/L (101-111); EGFR African American 78.7 (>60); Globulin 3.5 g/dL (2-4); Glucose 89 mg/dL (70-100); Sodium 137 mmol/L (135-145); Total Protein 7.4 g/dL (6.4-8.9)
[2019-08-23 18:54] LABS: Anion Gap 8 mmol/L (2-11)
[2019-08-23 18:55] LABS: HCG Pregnancy 4.76 mIU/mL
[2019-08-23 19:19] VITALS: BP 106/67
== END 2019-08-23 19:11 | disposition home or self-care (01) ==
LOC: ED 16:39
DX: N20.0 Calculus of kidney (principal); J45.909 Unspecified asthma, uncomplicated; F41.9 Anxiety disorder, unspecified; F31.9 Bipolar disorder, unspecified; Z90.49 Acquired absence of other specified parts of digestive tract; Z88.5 Allergy status to narcotic agent; Z88.2 Allergy status to sulfonamides; Z88.8 Allergy status to other drugs, medicaments and biological substances; Z88.1 Allergy status to other antibiotic agents; Z91.041 Radiographic dye allergy status
CPT/HCPCS: 36415; 76775; 80053; 81003; 81015; 84702; 87086; 99283; A9270-GY

== ENCOUNTER 2019-09-23 20:20 | Emergency (ER) | payer BC ==
--- NOTE | 2019-09-23 20:41 | ED ---
Abdominal Pain/Female - HPI Summary HPI Summary: Patient is a 34 y/o F presenting to the ED for a chief complaint of RLQ abdominal pain that radiates to the back that began on 09/22/19. On triage, she rates the pain as a 9/10 in severity. Initially, the abdominal pain was near the umbilicus and later migrated to the RLQ. Patient also reports nausea and vomiting. She has been unable to eat or drink for the last 2 days due to the nausea and vomiting. Last bowel movement was prior to arrival. Patient denies fever. No aggravating or alleviating factors are reported. Previously, she was seen at [facility] for abdominal pain, but states this abdominal pain is different from before. At that time, she was diagnosed with a left kidney stone. On , she was seen at her CARE TRANSITION COORDINATOR's office and had scar tissue removed from a prior hysterectomy. Dr. Emerita Tatum is her CARE TRANSITION COORDINATOR in [place]. - History of Current Complaint Chief Complaint: EDAbdPain Stated Complaint: ABD PAIN PER PT Time Seen by Provider: 09/23/19 20:28 Hx Obtained From: Patient ?: No - Hysterectomy Onset/Duration: Sudden Onset, Still Present Timing: Constant Severity Initially: Severe Severity Currently: Severe Pain Intensity: 9 Pain Scale Used: 0-10 Numeric Location: Discrete At: RLQ Radiates: Yes Radiates to: Back Aggravating Factor(s): Nothing Alleviating Factor(s): Nothing Associated Signs and Symptoms: Positive: Back Pain, Nausea, Vomiting. Negative : Fever Allergies/Adverse Reactions: Allergies Allergy/AdvReac Type Severity Reaction Status Date / Time acetaminophen Allergy Unknown Verified 09/23/19 21:08 Reaction Details amoxicillin Allergy Rash Verified 09/23/19 21:08 ibuprofen Allergy Edema Verified 09/23/19 21:08 Iodinated Contrast Media Allergy Rash Verified 09/23/19 21:08 Latex, Natural Rubber Allergy Rash Verified 09/23/19 21:08 lorazepam Allergy Unknown Verified 09/23/19 21:08 Reaction Details metoclopramide [From Reglan] Allergy Unknown Verified 09/23/19 21:08 Reaction Details nalbuphine [From Nubain] Allergy Unknown Verified 09/23/19 21:08 Reaction Details propoxyphene Allergy Unknown Verified 09/23/19 21:08 Reaction Details sulfamethoxazole Allergy Unknown Verified 09/23/19 21:08 [From Bactrim] Reaction Details tramadol Allergy Rash Verified 09/23/19 21:08 trimethoprim [From Bactrim] Allergy Unknown Verified 09/23/19 21:08 Reaction Details Home Medications: Home Medications Doxepin HCl 75 mg PO BEDTIME 09/23/19 [History Confirmed 09/23/19] PMH/Surg Hx/FS Hx/Imm Hx Previously Healthy: Yes Endocrine/Hematology History: Denies: Hx Anticoagulant Therapy Cardiovascular History: Denies: Hx Hypertension, Hx Syncope Respiratory History: Reports: Hx Asthma, Hx Seasonal Allergies - pollen GI History: Reports: Hx Gall Bladder Disease - cholecystectomy, Other GI Disorders - fatty liver disease History: Reports: Hx Kidney Stones Denies: Hx Acute Renal Failure, Hx Benign Prostatic Hyperplasia, Hx Chronic Renal Failure, Hx Dialysis, Hx Kidney Infection Musculoskeletal History: Reports: Hx Arthritis - knees bilat, Hx Back Problems - "pinched nerves" per patient Sensory History: Reports: Hx Contacts or Glasses - not with patient at this time Denies: Hx Cataracts, Hx Legally Blind, Hx Deafness Opthamlomology History: Reports: Hx Contacts or Glasses - not with patient at this time Denies: Hx Cataracts, Hx Legally Blind EENT History: Denies: Hx Deafness Neurological History: Reports: Hx Headaches, Hx Migraine Denies: Hx Dementia, Hx Seizures Psychiatric History: Reports: Hx Anxiety, Hx Eating Disorder, Hx Depression, Hx Post Traumatic Stress Disorder, Hx Bipolar Disorder, Hx Suicide Attempt - when she was 19 - "not serious" Denies: Hx Attention Deficit Hyperactivity Disorder, Hx Inpatient Treatment, Hx Schizophrenia, Hx of Violent Episodes Against Others - Surgical History Surgical History: Yes Surgery Procedure, Year, and Place: SETH, BILATERAL KNEES. ATTEMPTED TO STERILIZE BUT FAILED SURGERY ACCORDING TO PT/LOWER ABD SCAR. Hysterectomy. Hx Anesthesia Reactions: No - Immunization History Date of Tetanus Vaccine: PT UNSURE Date of Influenza Vaccine: 05/28/2019 Infectious Disease History: No Infectious Disease History: Denies: Hx Clostridium Difficile, Hx Hepatitis, Hx Human Immunodeficiency Virus (HIV), Hx of Known/Suspected MRSA, Hx Shingles, Hx Tuberculosis, Hx Known/ Suspected VRE, Hx Known/Suspected VRSA, History Other Infectious Disease, Traveled Outside the [place] in Last 30 Days - Family History Known Family History: Negative: Diabetes - Social History Occupation: Employed Full-time Lives: With Family Alcohol Use: None Hx Substance Use: No Substance Use Type: Reports: None Hx Tobacco Use: No Smoking Status (MU): Never Smoked Tobacco Have You Smoked in the Last Year: No Review of Systems Negative: Fever Positive: Abdominal Pain - RLQ, Vomiting, Nausea Positive: Myalgia - Back that radiates from the RLQ All Other Systems Reviewed And Are Negative: Yes Physical Exam - Summary Physical Exam Summary: Constitutional: Well-developed, Obese, Alert. (-) Distressed Skin: Warm, Dry HENT: Normocephalic; Atraumatic Eyes: Conjunctiva normal Neck: Musculoskeletal ROM normal neck. (-) JVD, (-) Stridor, (-) Nuchal rigidity Cardio: Rhythm regular, rate normal, Heart sounds normal; Intact distal pulses; Radial pulses are 2+ and symmetric. (-) Murmur Pulmonary/Chest wall: Effort normal. (-) Respiratory distress, (-) Wheezes, (-) Rales Abd: Soft, (-) Distension, (-) Guarding, (-) Rebound. RLQ tenderness. Musculoskeletal: (-) Edema Lymph: (-) Cervical adenopathy Neuro: Alert, Oriented x3 Psych: Mood and affect Normal Triage Information Reviewed: Yes Vital Signs On Initial Exam: Initial Vitals Temp Pulse Resp BP Pulse Ox 98.1 F 82 20 138/102 98 09/23/19 20:21 09/23/19 20:21 09/23/19 20:21 09/23/19 20:21 09/23/19 20:21 Vital Signs Reviewed: Yes Procedures - Procedure Summary Procedure Summary: US IV Ultrasound Guided Peripheral IV Procedure Note Indication: Unable to obtain adequate IV access Skin Prep:Chlorhexidine Sterile Prep (allowed to dry for thirty seconds) Sterility: Gloves Insertion: Appropriate time out was taken. Ultrasound guidance was utilized for vein selection, to document selected vessel patency and real time ultrasound visualization of vascular needle entry into venous lumen. Insertion L AC Type of catheter: 20 gauge catheter Blood return:yes Saline lock: yes Post Procedure: Estimated blood loss: minimal - Sedation Patient Received Moderate/Deep Sedation with Procedure: No Diagnostics - Vital Signs Vital Signs Temp Pulse Resp BP Pulse Ox 09/23/19 20:21 98.1 F 82 20 138/102 98 - Laboratory Result Diagrams: 09/23/19 20:52 09/23/19 23:41 Lab Statement: Any lab studies that have been ordered have been reviewed, and results considered in the medical decision making process. Abdominal Pain Fem Course/Dx - Course Course Of Treatment: 34 y/o F w hx chronic lower abdominal pain p/w RLQ abdominal pain. - patient w hx L renal nonobstructing stones, recent lysis of adhesions. Patient has had multiple CT scans didn't back to May and as recent as July of this year. No infectious signs on history or labs.. No leukocytosis. Do not suspect ovarian torsion given intermittent symptoms and well-appearing on exam. No vaginal bleeding or discharge or fevers to suggest PID. No dysuria to suggest UTI. Given right lower quadrant tenderness, patient could possibly have appendicitis, will check CBC and CRP. Patient has had multiple CT scans in the past months for similar presentations, hesitant to rescan at this time. We'll reassess after labs fluids and Zofran. She also has multiple allergies to nonnarcotics, advised we will attempt nonnarcotic pain options at this time. - Diagnoses Provider Diagnoses: RLQ abdominal pain, Chronic abdominal pain Discharge ED - Sign-Out/Discharge Documenting (check all that apply): Sign-Out Patient Signing out patient TO: Maryanne Tom - Patient is a sign-out at 22: 00 on 09/23/[address] Sana Nicole MD to Dr. Maryanne Tom MD at shift change, pending imaging results, further workup, and disposition. - Discharge Plan Condition: Stable Disposition: HOME Prescriptions: Baclofen TAB* [Lioresal TAB*] 20 mg PO TID PRN #20 tab PRN Reason: Pain - Moderate Dicyclomine CAP* [Bentyl CAP*] 10 mg PO ACHS PRN #20 cap PRN Reason: Pain - Moderate Patient Education Materials: Abdominal Pain (ED) Print Language: BENINESE Referrals: Rahul Trevino MD [Medical Doctor] - Brooks FERRIS,Jori Campoverde [Primary Care Provider] - Additional Instructions: You were seen in the emergency department for right sided abdominal pain. Your labs didn't show any evidence of infection. Please follow up with your primary care doctor. If any studies were not completed at the time of discharge you will be called with the relevant results. Please follow up with your primary care doctor in next 2-3 days and return to emergency department for worsening pain, vomiting, fevers, or concerning symptoms. Follow-up with Dr. Trevino for Pain Management. It was a pleasure taking care of you today. - Billing Disposition and Condition Condition: STABLE Disposition: Home - Attestation Statements Document Initiated by Remigio: Yes Documenting Scribe: Savannah Patterson Provider For Whom Gopiibsha is Documenting (Include Credential): Sana Nicole MD Scribe Attestation: I, Savannah Patterson, scribed for Sana Nicole MD on 09/24/19 at 1000. Scribe Documentation Reviewed: Yes Provider Attestation: The documentation as recorded by the Savannah gastelum accurately reflects the service I personally performed and the decisions made by , Sana Nicole MD Status of Scribe Document: Viewed
[2019-09-23] MEDS ORDERED: Ondansetron INJ* 2 MG/ML VIAL IV ONE (20:58)
[2019-09-23 21:02] LABS: ABS Lymphocytes 1.7 10^3/ul (1.0-4.8); ABS Monocytes 0.4 10^3/ul (0-0.8); ABS Neutrophils 3.7 10^3/ul (1.5-7.7); Eosinophil % 0.2 %; Hematocrit 40 % (35-47); Hemoglobin 13.7 g/dL (12.0-16.0); Lymphocyte % 28.8 %; Mean Corpuscular HGB Conc 35 g/dL (31-36); Mean Corpuscular Hemoglobin 30 pg (27-31); Mean Corpuscular Volume 87 fL (80-97); Mean Platelet Volume 7.7 fL (7.4-10.4); Nucleated Red Blood Cells % 0.1; Platelet Count 269 10^3/uL (150-450); Red Blood Count 4.53 10^6 /uL (3.70-4.87); Red Cell Distribution Width 12 % (10-15); White Blood Count 5.8 10^3/uL (3.5-10.8)
[2019-09-23] MEDS ORDERED: Dicyclomine CAP* 10 MG PO ONE (21:19)
--- NOTE | 2019-09-23 21:59 | ED ---
Progress - Progress Note Progress Note: Patient is a sign-out at 22:00 on 09/23/[address] Sana Nicole MD to Dr. Maryanne Tom MD at shift change, pending further workup, and disposition. Course/Dx - Course Course Of Treatment: 34 y/o F w hx chronic lower abdominal pain p/w RLQ abdominal pain. - patient w hx L renal nonobstructing stones, recent lysis of adhesions. Patient has had multiple CT scans didn't back to May and as recent as July of this year. No infectious signs on history or labs.. No leukocytosis. Do not suspect ovarian torsion given intermittent symptoms and well-appearing on exam. No vaginal bleeding or discharge or fevers to suggest PID. No dysuria to suggest UTI. Given right lower quadrant tenderness, patient could possibly have appendicitis, will check CBC and CRP. Patient has had multiple CT scans in the past months for similar presentations, hesitant to rescan at this time. We'll reassess after labs fluids and Zofran. She also has multiple allergies to nonnarcotics, advised we will attempt nonnarcotic pain options at this time. Maryanne Tom - Patient is a sign-out at 22:00 on 09/23/[address] Sana Niocle MD to Dr. Maryanne Anderson MD at shift change, pending further workup, and disposition. Pt was given diphenhydramine IV 50 mg during ED course. Patient will be discharged home with follow up to PCP, in 2-3 days. Patient was instructed to return to Emergency Department for new or worsening symptoms. Patient understands and is agreeable to this plan. - Diagnoses Provider Diagnoses: RLQ abdominal pain, Chronic abdominal pain Discharge ED - Sign-Out/Discharge Documenting (check all that apply): Patient Departure - Discharge Plan Condition: Stable Disposition: HOME Prescriptions: Baclofen TAB* [Lioresal TAB*] 20 mg PO TID PRN #20 tab PRN Reason: Pain - Moderate Dicyclomine CAP* [Bentyl CAP*] 10 mg PO ACHS PRN #20 cap PRN Reason: Pain - Moderate Patient Education Materials: Abdominal Pain (ED) Print Language: SLOVENIAN Referrals: Rahul Trevino MD [Medical Doctor] - Brooks FERRIS,Jori Campoverde [Primary Care Provider] - Additional Instructions: You were seen in the emergency department for right sided abdominal pain. Your labs didn't show any evidence of infection. Please follow up with your primary care doctor. If any studies were not completed at the time of discharge you will be called with the relevant results. Please follow up with your primary care doctor in next 2-3 days and return to emergency department for worsening pain, vomiting, fevers, or concerning symptoms. Follow-up with Dr. Trevino for Pain Management. It was a pleasure taking care of you today. - Billing Disposition and Condition Condition: STABLE Disposition: Home - Attestation Statements Document Initiated by Remigio: Yes Documenting Scribe: Emile Lubin Provider For Whom Remigio is Documenting (Include Credential): Maryanne Anderson MD Scribe Attestation: Emile Yuan, scribed for Maryanne Tom MD on 09/25/19 at 0639. Scribe Documentation Reviewed: Yes Provider Attestation: The documentation as recorded by the Emile gastelum accurately reflects the service I personally performed and the decisions made by me, Maryanne Tom MD Status of Scribsha Document: Viewed
[2019-09-23 22:19] LABS: ALT 17 U/L (7-52); Albumin 4.1 g/dL (3.2-5.2); Albumin/Globulin Ratio 1.2 (1-3); Alkaline Phosphatase 73 U/L (34-104); Anion Gap 3 mmol/L (2-11); BUN/Creatinine Ratio 7.2 (8-20); Blood Urea Nitrogen 6 mg/dL (6-24); C Reactive Protein < 1.00 mg/L (<8.01); CO2 Carbon Dioxide 28 mmol/L (22-32); Calcium 8.9 mg/dL (8.6-10.3); Chloride 103 mmol/L (101-111); EGFR African American 96.4 (>60); EGFR Non-African American 79.7 (>60); Globulin 3.5 g/dL (2-4); Glucose 95 mg/dL (70-100); Sodium 134 mmol/L (135-145); Total Protein 7.6 g/dL (6.4-8.9)
[2019-09-23 22:22] LABS: HCG Pregnancy 4.51 mIU/mL
[2019-09-24 00:05] LABS: Potassium Redraw 3.6 mmol/L (3.5-5.0)
[2019-09-24] MEDS ORDERED: Orphenadrine Citrate IV* 30 MG/ML 2 ML VIAL IM ONE (00:25)
[2019-09-24] MEDS ORDERED: Orphenadrine Citrate IV* 30 MG/ML 2 ML VIAL IV ONE (00:27)
[2019-09-24 00:42] LABS: Urine Appearance Clear; Urine Bilirubin Negative (Negative); Urine Blood Negative (Negative); Urine Color Yellow; Urine Glucose Negative (Negative); Urine Ketones Negative (Negative); Urine Nitrite Negative (Negative); Urine Protein Negative (Negative); Urine Specific Gravity 1.011 (1.010-1.030); Urine Urobilinogen Negative (Negative)
[2019-09-24 00:45] LABS: Urine Bacteria Absent (Absent); Urine Red Blood Cell Trace(0-2/hpf) (Absent); Urine Squamous Epithelial Cell Present (Absent); Urine White Blood Cell Trace(0-5/hpf) (Absent)
[2019-09-24] MEDS ORDERED: diPHENhydraMINE IV* 50 MG/ML 1 ml VIAL (BENADRYL) SLOW PUSH ONE (01:39)
[2019-09-24 02:13] VITALS: BP 110/75
== END 2019-09-24 02:13 | disposition home or self-care (01) ==
LOC: ED 20:20
DX: R10.31 Right lower quadrant pain (principal); R11.2 Nausea with vomiting, unspecified; M54.9 Dorsalgia, unspecified; F41.9 Anxiety disorder, unspecified; F32.9 Major depressive disorder, single episode, unspecified; Z87.442 Personal history of urinary calculi; Z90.49 Acquired absence of other specified parts of digestive tract; Z90.710 Acquired absence of both cervix and uterus; Z88.5 Allergy status to narcotic agent; Z88.0 Allergy status to penicillin; Z88.2 Allergy status to sulfonamides; Z88.8 Allergy status to other drugs, medicaments and biological substances; Z88.6 Allergy status to analgesic agent; Z91.041 Radiographic dye allergy status; Z91.040 Latex allergy status
CPT/HCPCS: 36415; 80053; 81003; 81015; 84702; 85025; 86140; 87086; 96374; 96375; 96376; 99284; A9270-GY; J1200; J2360; J2405

== ENCOUNTER 2019-11-25 13:18 | Emergency (ER) | payer BC ==
[2019-11-25 13:26] VITALS: BP 123/85
== END 2019-11-25 14:30 | disposition left against medical advice (07) ==
LOC: ED 13:18
DX: R10.9 Unspecified abdominal pain (principal); Z53.21 Procedure and treatment not carried out due to patient leaving prior to being seen by health care provider
CPT/HCPCS: 99281